=== PATIENT | male | born 1955 | race Caucasian/White ===

== ENCOUNTER 2021-02-10 09:09 | Inpatient (IN) | payer OTHER ==
[2021-02-10] MEDS ORDERED: BISACODYL 10 MG RECTAL PRN (12:43)
[2021-02-10] MEDS ORDERED: MORPHINE 20 MG/ML PO PRN (12:43)
[2021-02-10] MEDS ORDERED: GLYCOPYRROLATE 1 MG PO PRN (12:43)
[2021-02-10] MEDS ORDERED: Fluticasone Propionate Nasal Spray 9.9 ML BOTTLE NASBOTH PRN (12:51)
[2021-02-10] MEDS ORDERED: LORazepam 0.5 MG Tab (OWN SUPPLY) PO PRN (12:52)
--- NOTE | 2021-02-10 18:54 | HP ---
CHIEF COMPLAINT: Weakness. HISTORY OF PRESENT ILLNESS: The patient is a 65-year-old male who presents to swing bed per hospice for need for cares. The patient normally lives in [place], [place], and his family is currently needing to be at [facility] for surgeries for a premature grandchild and so he needs help with caregivers. He does have some family connections to [place]. The patient has been seen by a neurologist from [place], otherwise his primary care doctor is in [place]. MEDICATIONS: The patient is currently on is Flonase nasal spray two puffs daily p.r.n., Icy Hot cream p.r.n., multivitamin p.r.n. He has been on aspirin 81 mg one pill daily, bisacodyl 10 mg rectal suppository p.r.n. constipation, glycopyrrolate 1 mg q.8 hours p.r.n., lorazepam 0.25 mg q.4 hours p.r.n. anxiety, morphine sulfate 2 mg q.1 hour p.r.n., magnesium 250 one pill daily, Men's vitamin one pill daily, nonformulary medication one capsule daily, another nonformulary medication two teaspoons daily, another nonformulary 1200 mg daily, and pyridoxine which is vitamin B6 200 mg daily, CoQ10 200 mg one pill daily. ALLERGIES: Statins. PAST MEDICAL HISTORY: The patient had ALS diagnosed in 2014 with confirmation at [facility] in 2017. He has had gastroesophageal reflux disease. He has had nocturia, urinary urgency, frequency. He has a neurogenic bladder and needs to use a condom catheter. Oxybutynin did not help. The patient has had nocturnal leg cramps. He has had posterior pharyngeal mucus which has responded to Flonase nasal spray. The patient has had poor sleep, cool feet. He has had some inguinal skin rash. His primary care provider here is Lida Palomares from [place], [place]. He did have COVID in the fall 2019. He did receive a Dima and Dima vaccine in 12/2020. PAST SURGICAL HISTORY: The patient has had a vasectomy, internal hemorrhoid surgery. He has had left knee surgery. He has had muscle biopsy as well as a previous colonoscopy. FAMILY MEDICAL HISTORY: Father had hypertension. Mother from liver failure in early age, not related to alcoholism. Premature granddaughter has lungs that are failing to develop. 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 He does not smoke. He occasionally has consumed alcohol. REVIEW OF SYSTEMS: He has had borderline blood pressure readings. No headaches. He does have weak neck muscles. Does have dry skin on his face. No coughing. No nausea. Does have some skin rashes in inguinal areas. He is weak with his hands with movement, difficulty with transfers, required a Fabrice lift. He has had a caregiver at home during the day when his has worked. PHYSICAL EXAMINATION: Vital Signs: His temperature is 36.6, pulse 93, initial blood pressure is 143/101 with just coming to the floor, respirations 16, saturations are 97%. HEENT: His pharynx is normal. Mucous membranes are moist. Speech is clear, handles oral secretions. Neck: No anterior cervical lymphadenopathy. He does wear a neck collar.. His neck is weak, does tend to bend forward. He has a collar on. Heart: Regular rate and rhythm without murmurs or bruits. Lungs: Clear to auscultation. Abdomen: Soft, nontender. Inguinal area is not examined. Extremities: Lower extremities, no edema. He does wear AFOs on both feet. He does have a well-healed scar on his left knee. Neurologic: His speech is clear and alert. He is very weak with movement of his arms as well as his legs. Mood-villasenor is appropriate and intact. Judgment appears appropriate. IMPRESSION: 1. Amyotrophic lateral sclerosis with progressing muscle weakness. 2. Gastroesophageal reflux disease. 3. Neurogenic bladder. 4. Dermatitis, inguinal areas. 5. Nocturnal muscle cramps. 6. Elevated blood pressure. PLAN: We will get the patient settled into room, and we will be monitoring his blood pressure. Hospice will be following. and help decide if his BP needs to be treated or not. Anticipate the patient's stay should be about five days. The patient is code level 2 status with do not resuscitate/do not intubate. He also has expressed he does not want to have any tube feedings at all. The patient will also be checked for COVID for coming into the facility. GM02/10/2021 13:00:06 MODL: 02/10/2021 18:46:37 /[id number] [facility]
[2021-02-10] MEDS: Acetaminophen 500 MG Tab PO PRN (21:13)
[2021-02-11] MEDS ORDERED: [UNRECOGNIZED DRUG - OTHER] PO SCH (08:00)
[2021-02-11] MEDS ORDERED: VITAMIN D2 PO SCH (08:00)
[2021-02-11] MEDS ORDERED: [UNRECOGNIZED DRUG - OTHER] PO SCH (08:00)
[2021-02-11] MEDS ORDERED: MAGNESIUM 250 MG PO SCH (08:00)
[2021-02-11] MEDS ORDERED: Aspirin 81 MG Tab.EC PO SCH (08:00)
[2021-02-11] MEDS ORDERED: VITAMIN B6 100 MG PO SCH (08:00)
[2021-02-11] MEDS ORDERED: UBIDECARENONE 200 MG PO SCH (08:00)
[2021-02-11] MEDS ORDERED: FISH OIL PO SCH (08:00)
[2021-02-11] MEDS: [UNRECOGNIZED DRUG - OTHER] TOP PRN (08:52)
[2021-02-11] MEDS: MAGNESIUM CARBONATE PO SCH (09:00)
[2021-02-11] MEDS: Acetaminophen 500 MG Tab PO PRN (21:22)
[2021-02-12] MEDS: [UNRECOGNIZED DRUG - OTHER] TOP PRN (08:25)
[2021-02-12] MEDS: MAGNESIUM CARBONATE PO SCH (08:26)
[2021-02-12] MEDS: Acetaminophen 500 MG Tab PO PRN (20:42)
[2021-02-13] MEDS: MAGNESIUM CARBONATE PO SCH (08:44)
[2021-02-13] MEDS: Acetaminophen 500 MG Tab PO PRN (21:24)
[2021-02-14] MEDS: MAGNESIUM CARBONATE PO SCH (07:45)
[2021-02-14 08:47] VITALS: BP 123/87; PULSE 110
[2021-02-14] MEDS: Acetaminophen 500 MG Tab PO PRN (20:58)
[2021-02-15] MEDS: MAGNESIUM CARBONATE PO SCH (08:15)
--- NOTE | 2021-02-15 20:47 | DISCH ---
PRIMARY DIAGNOSES: 1. Amyotrophic lateral sclerosis on hospice. 2. Weakness. 3. Gastroesophageal reflux disease. 4. Neurogenic bladder. 5. Inguinal dermatitis. 6. Nocturnal muscle cramps. 7. Elevated blood pressure. HISTORY OF PRESENT ILLNESS: The patient is a 65-year-old male who is from [place], [place], whose family had to travel out of state to attend to medical needs of a family member, so he needed care giving to help with his ADLs and family had connections in [place], so he came to swing bed here. He otherwise normally doctors in [place], [place]. SUMMARY OF SWING BED COURSE: While the patient was here, no problems were noted. It was noted that his blood pressure did improve after being here and settled, it went down to the 120s over 70s. His pulse was up to 110 on the day of discharge, but otherwise had been in the 90s. The patient did not have any lab work done and has no other cares needed for him. DISCHARGE MEDICATIONS: 1. Glycopyrrolate 1 mg q.8 hours p.r.n. 2. Lorazepam 0.25 mg q.4 hours p.r.n. 3. Morphine 2 mg q.1 hour p.r.n. (hospice medication). 4. Non-formulary drug 2 teaspoons daily. 5. Flonase 1 spray twice a day p.r.n. 6. Tylenol 1000 mg t.i.d. p.r.n. 7. Icy Hot topical 3 times a day as needed. The patient is do not resuscitate/do not intubate. It is anticipated the patient's ALS will continue to get progressively worse and he will from his current conditions. The patient has expressed desire for no tube feedings. GM02/15/2021 09:44:36 MODL: 02/15/2021 20:39:00 /[id number]
== END 2021-02-15 14:45 | disposition hospice, home (50) | DRG 57 ==
LOC: VM.MS 12:01
PROVIDERS: ADMIT Family Medicine; ATTEND Family Medicine
DX: G12.21 Amyotrophic lateral sclerosis (principal); K21.9 Gastro-esophageal reflux disease without esophagitis; R53.1 Weakness; N31.9 Neuromuscular dysfunction of bladder, unspecified; L30.8 Other specified dermatitis; R25.2 Cramp and spasm; Z51.5 Encounter for palliative care; Z20.822 Contact with and (suspected) exposure to COVID-19; Z88.8 Allergy status to other drugs, medicaments and biological substances; Z98.52 Vasectomy status; Z66 Do not resuscitate
CPT/HCPCS: A9270-GY; U0002

== ENCOUNTER 2021-03-17 15:32 | Inpatient (IN) | payer OTHER ==
[2021-03-17] MEDS ORDERED: LORazepam 0.5 MG Tab PO PRN ×2 (16:16→16:25)
[2021-03-17] MEDS ORDERED: Bisacodyl 10 MG Supp RECTAL PRN (16:16)
[2021-03-17] MEDS ORDERED: Glycopyrrolate 1 MG Tab PO PRN (16:16)
[2021-03-17] MEDS ORDERED: [UNRECOGNIZED DRUG - OTHER] TOP PRN (16:16)
[2021-03-17] MEDS ORDERED: Fluticasone Propionate Nasal Spray 9.9 ML BOTTLE NASBOTH PRN (16:16)
[2021-03-17] MEDS ORDERED: Morphine Oral Concentrate 20 MG/ML 30 ML Bottle PO PRN (16:16)
--- NOTE | 2021-03-17 17:45 | HP ---
CHIEF COMPLAINT: Weakness. HISTORY OF PRESENT ILLNESS: The patient is a 65-year-old male on hospice for his ALS who comes to [place] for cares while his son is getting locally. He cannot take care of himself with cares. He cannot feed himself or change his clothing or take care of personal hygiene needs. He states he has gotten weaker from his last visit. He has not had problems with choking at all. He has not had any changes of his medications by his providers. MEDICATIONS: That he is currently on are bisacodyl 10 mg rectal suppository daily p.r.n.; Flonase nasal spray two puffs twice a day; glycopyrrolate 1 mg q.8 hours p.r.n.; lorazepam 0.25 mg q.4 hours p.r.n.; morphine sulfate 20 mg/mL, he gets 2 mg q.1 hour p.r.n. pain or dyspepsia; Icy Hot roll-on one application three times a day as needed; magnesium carbonate two teaspoons by mouth daily. ALLERGIES: Statins. PAST MEDICAL HISTORY: The patient has had ALS. He has had gastroesophageal reflux disease. He has had nocturia and urinary frequency. He has had a neurogenic bladder, has had to have a condom catheter. The patient has had nocturnal leg cramps. He has had allergic rhinitis. He has had poor sleep, cold feet. Primary care provider has been Lida Palomares from [place], [place]. He did receive the Dima and Dima COVID vaccine in 12/2020. PAST SURGICAL HISTORY: He has had a vasectomy, internal hemorrhoid surgery, left knee surgery, muscle biopsy, as well as colonoscopy. FAMILY HISTORY: Father has had hypertension. Mother from liver failure, early stage, not related to alcoholism. He has a premature granddaughter who has had lungs that are failing to develop. 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 Does not smoke. Occasionally consumes alcohol. REVIEW OF SYSTEMS: He has had elevated blood pressure when he first arises, but it usually improves. No problems with headaches. No chest pain. No sore throat. No coughing. No skin rashes. He does wear support stockings on his feet. Has had a condom catheter. He needs a Fabrice lift for transfers. PHYSICAL EXAMINATION: Vital Signs: His blood pressure is 139/97, pulse is 87, respiratory rate is 19, saturations are 100% on room air. HEENT: Pupils are equal and reactive to light. Cheeks are slightly flushed. Pharynx is normal. He does wear a neck support collar for his head. Heart: Regular rate and rhythm without murmurs or bruits. Lungs: Clear to auscultation. Abdomen: Bowel sounds are present. Soft, nontender. No hepatosplenomegaly. Extremities: Lower extremities have trace edema. He does have support stockings on. Neurologic: He is very weak of his upper extremities, has a difficult time gaining trunk stability with position changes. 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 Psychiatric: He is alert, oriented x3. Pleasant to visit with. Mood is good. IMPRESSION: 1. Amyotrophic lateral sclerosis. 2. Weakness, progressive, on hospice cares. 3. Neurogenic bladder. 4. Gastroesophageal reflux disease. 5. Nocturnal leg cramps. PLAN: We will have the patient on hospice care respite at [facility]. He will not have any lab work done or any therapies. The patient's code level status is do not resuscitate/do not intubate. The patient possibly could of his progressive health condition while he is here. Anticipate the patient to be discharged on 03/20/2021 to return to his home. GM03/17/2021 16:58:28 MODL: 03/17/2021 17:38:09 /[id number]
[2021-03-18] MEDS: MAGNESIUM CARBONATE PO SCH (09:16)
[2021-03-19] MEDS: MAGNESIUM CARBONATE PO SCH (08:59)
[2021-03-19 18:28] VITALS: BP 131/86; PULSE 84
[2021-03-20] MEDS: MAGNESIUM CARBONATE PO SCH (09:08)
--- NOTE | 2021-03-21 11:21 | DISCH ---
HISTORY OF PRESENT ILLNESS: 65-year-old male patient, on hospice for advanced ALS, came to [facility] for respite care while his son was getting locally. The patient cannot take care of himself at home. The patient cannot feed himself nor change his clothing or take care of personal hygiene. The patient has a recent history of increased weakness. Patient has no problems with phonation or swallowing. No recent changes with medications. BRIEF HOSPITAL COURSE: The patient remained hemodynamically stable without any problems during his stay. The patient did very well. The patient was continued on his home medications without any changes. The patient was able to be discharged home in hemodynamically stable condition with his family. CONSULTATIONS: None. LABORATORY WORK: None. IMAGING STUDIES: None. DISCHARGE REVIEW OF SYSTEMS: Skin: Negative. Respiratory: Negative. Cardiovascular: Negative. Neurological: Negative. Abdomen: Negative. DISCHARGE PHYSICAL EXAMINATION: DISCHARGE VITAL SIGNS: None per nursing. RESPIRATORY: Lungs are clear to auscultation. CARDIOVASCULAR: Regular rate and rhythm, no murmur. ABDOMEN: Soft, nontender. Bowel sounds are normoactive x4. SKIN: See nursing assessment. NEUROLOGICAL: Patient is alert. Patient is cooperative. Patient is not in any acute distress. ASSESSMENT: 1. Amyotrophic lateral sclerosis. 2. Weakness, progressive, on hospice cares. 3. Neurogenic bladder. 4. Gastroesophageal reflux disease. 5. Nocturnal leg cramps. PLAN: The patient will be discharged home today into the care of his family. The patient was discharged in hemodynamically stable condition. No changes in home medications. He will continue the same. The patient will follow up with his PCP back home as directed. TB: 03/21/2021 10:58:18 MODL: 03/21/2021 11:15:20 /[id number] [facility]
== END 2021-03-20 11:10 | disposition home or self-care (01) | DRG 951 ==
LOC: VM.MS 15:40
PROVIDERS: ADMIT Family Medicine; ATTEND Family Medicine
DX: Z51.5 Encounter for palliative care (principal); G12.21 Amyotrophic lateral sclerosis; R53.1 Weakness; K21.9 Gastro-esophageal reflux disease without esophagitis; N31.9 Neuromuscular dysfunction of bladder, unspecified; Z66 Do not resuscitate; G47.62 Sleep related leg cramps; Z79.899 Other long term (current) drug therapy; Z88.8 Allergy status to other drugs, medicaments and biological substances
CPT/HCPCS: A9270-GY